=== PATIENT | female | born 1960 | race Caucasian/White ===

== ENCOUNTER → 2017-12-30 07:03 | Outpatient (CLI) | payer BC, SELFPAY ==
[2017-12-30 08:36] LABS: Add Manual Diff / Slide Review NO; Eosinophils Percent Auto 4.6 % (2-4); Hematocrit 41.4 % (36-46); Hemoglobin 13.8 g/dL (12.0-16.0); Lymphocytes Percent Auto 37.9 % (25-40); Mean Corpuscular HGB Conc 33.4 % (30-36); Mean Corpuscular Hemoglobin 31.3 PG (26-34); Mean Corpuscular Volume 93.6 fL (80-100); Monocytes Percent Auto 8.3 % (3-14); Neutrophils Absolute Auto 3400 /uL (3000-5900); Neutrophils Percent Auto 48.2 % (50-75); Platelet Count 290 X10^3/uL (150-400); Red Blood Cell Count 4.42 X10^6/uL (4.0-5.2); Red Cell Distribution Width 13.1 % (11.6-14.8)
[2017-12-30 10:07] LABS: Carbon Dioxide 26 mmol/L (22-32); Chloride 105 mmol/L (98-107); HEMOLYSIS 17 (0-50); Potassium 4.1 mmol/L (3.4-5.1); Sodium 141 mmol/L (137-145)
== END ==
PROVIDERS: PCP Family Medicine; Visit Provider Orthopaedic Surgery
DX: Z01.812 Encounter for preprocedural laboratory examination (principal); Z01.818 Encounter for other preprocedural examination
CPT/HCPCS: 36415; 80051; 85025; 93005; 93010

== ENCOUNTER 2018-02-04 11:02 | Day surgery (SDC) | payer BC, SELFPAY ==
[2018-01-28 15:05] VITALS: BMI 37.0
[2018-02-04] VITALS (11 sets, daily range): BP systolic 116–137; BP diastolic 79–92; PULSE 80–92; RESP 12–16; TEMP 36.1–36.7; O2SAT 93–99; BMI 37.0
--- NOTE | 2018-02-04 06:00 | DI.RAD.S_ITS ---
PROCEDURE: XR KNEE LT 1TO2V INDICATIONS: prosthesis placement TECHNIQUE: 2 view(s) of the knee acquired. COMPARISON: [facility], , KNEE 3V RIGHT, 02/05/2016, 10:47. FINDINGS: Bones: Patient is status post knee joint arthroplasty. Hardware components are in expected positions. Visualized bony structures are intact. Soft tissues: Overlying postoperative changes are noted. IMPRESSION: Expected positioning of recently placed left knee medial unicondylar arthroplasty. Dictated by: Toney Bermudez [facility] Interpreted: Amadeo Persaud MD on 02/04/2018 at 14:40 Approved by: Amadeo Persaud M.D. on 02/04/2018 at 16:22
[2018-02-04] MEDS: PREGABALIN 75 MG CAPSULE PO (11:37)
[2018-02-04] MEDS: ACETAMINOPHEN 325 MG TABLET 975 MG PO (11:37)
[2018-02-04] MEDS: MELOXICAM 7.5 MG TABLET 15 MG PO (11:38)
--- NOTE | 2018-02-04 11:56 | PM.PREOP ---
Pre-operative Note Interval Note Pre-op Check: Yes History & Physical Reviewed by Physician and Yes Exam Performed Changes: No
[2018-02-04] MEDS: LACTATED RINGERS 1,000 ML 42 ML IV ×2 (11:57→14:36)
[2018-02-04] MEDS: CEFAZOLIN 2 GM/100 ML FROZ.PIGGY IV (12:30)
--- NOTE | 2018-02-04 12:36 | SUR.PREOP ---
Block start time [1233] . Monitoring initiated and maintained throughout procedure. Oxygen and medications given per anesthesiologist instructions. Patient remained stable throughout procedure, no adverse reactions noted. Block end time [1236].
--- NOTE | 2018-02-04 12:41 | SUR.OPER ---
Supine on padded OR bed. Pillow under head, arms secured on padded armboards <90 degree abduction. Safety belt across torso. Non-operative leg secured with tape over blanket over lower leg. Operative leg secured in DeMayo/Sylvester positioner. Foam padded brace at thigh of operative leg.
--- NOTE | 2018-02-04 12:44 | P.OP_ITS ---
Operative Date/Time/Diagnoses Date of procedure: 02/04/18 Time of procedure: 13:53 Pre-op diagnosis: Medial compartment osteoarthritis left knee Post-op diagnosis: same Procedure & Clinicians Procedure: Left knee medial compartment arthroplasty Same procedure as scheduled: Yes Indications: The patient presents today for medial compartment l knee arthroplasty after failure of conservative treatment. The nature of the procedure including the risks and benefits, alternatives, postoperative course and expected outcome were discussed and all questions answered. Consent was obtained. Operative site confirmed and marked. Surgeon: Honorio Cleaning Headlight Adjuster: Jann Heller Anesthesia Type: General and Local Operative Notes Findings: Severe medial compartment osteoarthritis. Closure Type: primary Specimen(s): none sent Implants & Drains: [employer] ZUK be femur, 2 tibia and 10 mm polyethylene tray. Applied: implant(s) Estimated Blood Loss (mL): 25 Blood products transfused: none Tourniquet time (min): 50 Procedure in detail: The patient was taken to the operative suite and placed under general anesthesia. The patient received prophylactic antibiotics 1 g of IV tranexamic acid prior to surgery. The lateral aspect of the leg was prepped and the knee injected with 20 mL of 1% lidocaine with epinephrine. The leg was prepped and draped in usual sterile fashion. The leg was exsanguinated with an Esmarch dressing and the tourniquet raised to 250 torr. A 10 cm medial parapatellar incision and arthrotomy was then made. The anterior aspect of the fat pad and medial meniscus was resected. A small amount of anterior tibial boss was resected with a oscillating saw. The knee was then extended and the alignment guide placed. The distal femoral and proximal tibial cutting guides were then pinned into place. The distal femoral cut was made in extension. The proximal tibial cut was made in flexion. All remaining meniscus was excised. Gaps were checked with blocks. Soft tissues were then injected with a combination of 40 mL of quarter percent Marcaine with epinephrine, 20 mL of Exparel. The femur was sized and the appropriate cutting guide placed. The peg holes were drilled and chamfer cuts made. Next the tibia was sized and drilled. Trial components were then placed. The knee had good presybeterian of soft tissue tension without over correction. Range of motion was full. The trial components were removed. The knee was cleansed with Pulsavac irrigation and dried. The components were then cemented with high viscosity vacuum mixed bone cement. The knee was held in extension until the cement had adequately cured. The knee was then irrigated and inspected for any further debris. The extensor mechanism was closed at 90? of flexion with a few interrupted #1 Vicryl sutures and a running O V-LOC suture. The knee was then filled with 50 mL of solution containing 1 g of tranexamic acid and 10 mL of 0.5% Marcaine. The subcutaneous tissue was closed with 2-0 Vicryl. The skin was closed with a running 3 0 V-LOC suture and surgical adhesive. An Aquacel dressing was applied. The leg was then wrapped with an Ankur which will be kept on for the first 24 hours. The patient tolerated the procedure well and was returned to recovery room in good condition. Complications: none Condition: stable Disposition: same day surgery Plan for aftercare: Discharged to home with unicompartmental knee protocol.
[2018-02-04] MEDS: LIDOCAINE 1% W/EPI INJ 20 ML INJ (13:00)
[2018-02-04] MEDS: BUPIVACAINE 0.5% W/ EPI (PF) 20 ML, BUPIVACAINE LIPOSOME 266 MG, SODIUM CHLORIDE 0.9% 2... INJ (13:24)
[2018-02-04] MEDS: POVIDONE-IODINE 15 ML, SODIUM CHLORIDE 0.9% 250 ML TOP (13:25)
[2018-02-04] MEDS: BUPIVACAINE 0.5% (PF) 10 ML, TRANEXAMIC ACID 1,000 MG, SODIUM CHLORIDE 0.9% 20 ML INJ (13:25)
--- NOTE | 2018-02-04 13:26 | PM.PROC.1 ---
Procedures Date/Time Date of procedure: 02/04/18 Time of procedure: 12:20 General Procedure description: Ultrasound guided adductor canal nerve block for post op pain control after left knee surgery by Dr. Mcdonald. Risk and benefits of procedure discussed with patient. ASA monitoring applied to patient. O2 given via nasal cannula. 2 mg Versed given for procedural sedation. Skin site was prepped with chlorhexidine and allowed to fully dry. Sterile gloves, mask, hat and probe cover were used to maintain sterility. 2% lidocaine and 30ga needle was used to make a small skin wheal at needle insertion site. Under ultrasound guidance, a 21ga 100mm Pajunk needle was directed into the adductor canal near femoral artery and saphenous nerve at the level of mid thigh. Patient reported no parasthesias. After negative aspiration, 20 mL 0.5% ropivicaine and 10mg dexamethasone were injected around saphenous nerve. Patient tolerated procedure well.
== END 2018-02-04 16:00 | disposition home or self-care (01) ==
PROVIDERS: Family Provider Family Medicine; PCP Family Medicine; Visit Provider Orthopaedic Surgery
PROC: (CPT 27446; principal; 2018-02-04 12:45)
DX: M17.12 Unilateral primary osteoarthritis, left knee (principal); G89.18 Other acute postprocedural pain
CPT/HCPCS: 27446; 64447; 73560; C1776; C9290; J0690; J1200; J2250; J2405; J2704; J2795; J3010

== ENCOUNTER → 2018-07-30 11:14 | Outpatient (CLI) | payer BC, SELFPAY ==
--- NOTE | 2018-07-30 | DI.MG.S_ITS ---
BILATERAL DIGITAL SCREENING MAMMOGRAM 3D/2D WITH CAD: 07/30/2018 CLINICAL: Routine screening. Comparison is made to exams dated: 07/22/2017 mammogram, 06/19/2016 mammogram, and 05/15/2015 mammogram - [facility]. There are scattered fibroglandular elements in both breasts. Current study was also evaluated with a Computer Aided Detection (CAD) system. There are benign calcifications in both breasts. No significant masses, calcifications, or other findings are seen in either breast. There has been no significant interval change. IMPRESSION: There is no mammographic evidence of malignancy. A 1 year screening mammogram is recommended. This exam was interpreted at Station ID: [id number]. NOTE: For mammograms, a report in lay terms will be sent to the patient. Approximately 15% of breast malignancies will not be visualized mammographically. In the management of a palpable breast mass, a negative mammogram must not discourage biopsy of a clinically suspicious lesion. Electronically Signed By: Tejinder duarte/romeo:07/30/2018 12:08:29 letter sent: Normal Exam ACR BI-RADS Category 2: Benign Finding(s) 3342F
== END ==
PROVIDERS: Family Provider Family Medicine; PCP Family Medicine; Visit Provider Family Medicine
DX: Z12.31 Encounter for screening mammogram for malignant neoplasm of breast (principal)
CPT/HCPCS: 77063; 77067

== ENCOUNTER → 2018-08-18 07:06 | Outpatient (CLI) | payer BC, SELFPAY ==
[2018-08-18 09:10] LABS: Add Manual Diff / Slide Review NO; Basophils Absolute Auto 100 /uL (0-100); Basophils Percent Auto 1.4 % (0-2); Eosinophils Absolute Auto 400 /uL (0-450); Hematocrit 38.1 % (36-46); Hemoglobin 13.1 g/dL (12.0-16.0); Lymphocytes Absolute Auto 1800 /uL (1100-4500); Lymphocytes Percent Auto 29.6 % (25-40); Mean Corpuscular HGB Conc 34.4 % (30-36); Mean Corpuscular Hemoglobin 31.1 PG (26-34); Mean Corpuscular Volume 90.4 fL (80-100); Monocytes Absolute Auto 400 /uL (0-900); Monocytes Percent Auto 6.2 % (3-14); Neutrophils Absolute Auto 3500 /uL (1500-7000); Neutrophils Percent Auto 56.8 % (50-75); Platelet Count 292 X10^3/uL (150-400); Red Blood Cell Count 4.21 X10^6/uL (4.0-5.2); White Blood Cell Count 6.2 X10^3/uL (4.5-11.0)
[2018-08-18 09:52] LABS: Alanine Aminotransferase 26 IU/L (9-52); Albumin Globulin Ratio 1.5 (1.0-2.8); Alkaline Phosphatase 58 U/L (38-126); Aspartate Aminotransferase 21 IU/L (14-36); BUN Creatinine Ratio 18.3 (6-22); Bilirubin Total 0.4 mg/dL (0.2-1.3); Blood Urea Nitrogen 11 mg/dL (7-17); Carbon Dioxide 24 mmol/L (22-32); Chloride 106 mmol/L (98-107); Cholesterol 227 mg/dL (140-199); Estimated Glomerular Filt Rate > 60.0 mL/min (>60); Globulin 2.6 g/dL (1.7-4.1); Glucose 99 mg/dL (70-100); HDL Cholesterol 39 mg/dL (40-60); HEMOLYSIS < 15 (0-50); LDL Cholesterol Calculated 146 mg/dL (<100); Potassium 4.3 mmol/L (3.4-5.1); Sodium 140 mmol/L (137-145); Total Protein 6.6 g/dL (6.3-8.2); Triglycerides 210 mg/dL (35-150)
[2018-08-18 11:11] LABS: Free T4, Direct Thyroxine 0.93 ng/dL (0.78-2.19)
== END ==
PROVIDERS: PCP Family Medicine; Visit Provider Family Medicine
DX: Z00.00 Encounter for general adult medical examination without abnormal findings (principal); Z13.6 Encounter for screening for cardiovascular disorders
CPT/HCPCS: 36415; 80053; 80061; 84439; 84443; 85025

== ENCOUNTER → 2018-09-17 07:15 | Outpatient (CLI) | payer BC, SELFPAY ==
--- NOTE | 2018-09-17 07:16 | DI.US.S_ITS ---
PROCEDURE: US PERIPH VENOUS LOW EXTREM LT INDICATIONS: EDEMA TECHNIQUE: Real-time imaging, as well as color and pulse Doppler interrogation, were performed of the lower extremity deep veins from the inguinal ligament to the popliteal fossa. COMPARISON: [facility] [place], [place], XR FOOT 3+ VIEWS LEFT, 08/03/2018, 14:51. FINDINGS: The common femoral, femoral and popliteal veins are normally compressible, and free of intraluminal thrombus. Color and pulse Doppler demonstrate normal phasic intraluminal flow. There is normal augmentation response to distal compression maneuver. IMPRESSION: No evidence of deep venous thrombosis. Dictated by: Flip Benito M.D. on 09/17/2018 at 10:29 Approved by: Flip Benito M.D. on 09/17/2018 at 10:44
== END ==
PROVIDERS: PCP Family Medicine; Visit Provider Family Medicine
DX: R60.0 Localized edema (principal)
CPT/HCPCS: 93971

== ENCOUNTER 2019-02-22 08:44 | Day surgery (SDC) | payer BC, SELFPAY ==
[2019-02-22 09:10] VITALS: BP 134/87; PULSE 93; RESP 15; TEMP 36.3; O2SAT 97; BMI 33.8
[2019-02-22] MEDS: SODIUM CHLORIDE 0.9% 1,000 ML 200 ML IV (09:35)
--- NOTE | 2019-02-22 10:00 | PM.HP.1 ---
History of Present Illness History of Present Illness Date Patient Seen: 02/22/19 Time Patient Seen: 10:00 Chief complaint: [id number] Narrative: Patient presents for colorectal screening. Family history is significant for father with colorectal cancer at age 49. She has had 5 prior colonoscopy last 3 years ago that demonstrated an adenomatous polyp. On further history denies any recent gastrointestinal symptoms. No nausea, vomiting, abdominal pain, loss of appetite, unexplained weight loss, change in bowel habits, diarrhea, constipation, melena, hematochezia, or bright red blood per rectum. Patient History Medical History Abnormal Pap smear of cervix (Chronic) Arthritis of knee (Chronic) Colon polyps (Chronic ~2011) Heavy menstrual period (Resolved) Impaired vision (Chronic) Irregular menstrual cycle (Resolved) Ovarian cyst (Chronic ~1979) Postmenopausal (Chronic) Surgical History Anesthesia (Resolved) History of colonoscopy (Resolved) History of knee replacement Status post arthroscopy (~2000) Status post arthroscopy (~2005) Status post delivery (~1982) Status post delivery (~1985) Status post ovarian cystectomy (~1979) Family History (Updated 04/18/14 @ 00:00 by Conversion Provider) Brother Age: 54 Hypertension Brother Age: 52 Hypertension Father Hypertension Heart disease High cholesterol Mother No problems noted. Social History household members: spouse Smoking Status: Never smoker alcohol intake: current Family & Social History Family History Brother Age: 54 Hypertension Brother Age: 52 Hypertension Father Hypertension Heart disease High cholesterol Mother No problems noted. Social History: household members spouse Tobacco & Substance use: Smoking Status Never smoker alcohol intake current Meds Home Medications and Allergies Home Medications Medication Instructions Recorded Confirmed Type aspirin [Aspirin Low Dose] 81 mg PO QDAY #0 04/10/11 02/22/19 History fish brk-xelvj-2-vit C-vit E 1,000 mg PO DAILY #0 04/10/11 02/22/19 History gxythmbewipx-Cr-xxrg-minerals 2 tab PO DAILY #0 04/10/11 02/22/19 History [Multiple Vitamin, Womens] ibuprofen 400 mg PO PRN #0 02/18/12 02/22/19 History Allergies Allergy/AdvReac Type Severity Reaction Status Date / Time oxycodone [From Percocet] Allergy Mild Rash Verified 02/22/19 09:24 Sulfa (Sulfonamide Allergy Mild Rash Verified 02/22/19 09:24 Antibiotics) [SULFA (SULFONAMIDE ANTIBIOTICS)] Review of Systems Review of Systems ROS Unobtainable: All systems reviewed & are unremarkable except as noted in HPI and below Exam Vital Signs (past 8 hours): - 02/22/19 09:10 Temperature 97.4 F L Pulse Rate 93 H Respiratory Rate 15 Blood Pressure 134/87 Pulse Oximetry 97 Oxygen Delivery Method Room Air Narrative Exam Narrative: General-no acute distress, well nourished HEENT-moist mucous membranes, no scleral icterus Neck-supple, no lymphadenopathy Chest- non labored respirations, clear to auscultation bilaterally Cardiac-regular rate no peripheral edema Abdomen-soft, nontender, non distended Extremities-warm, well perfused Neurological-alert and oriented, no focal deficits Assessment & Plan Assessment and plan (1) Screening for colon cancer: Current visit: Yes Status: Acute Assessment & Plan narrative: Patient is requiring colorectal screening. Colonoscopy is recommended. Technical details were discussed. Risks, benefits, alternatives explained. Risks including but not limited to sedation, aspiration, bleeding, pain, missed lesion, incomplete examination, need for further radiographic studies, colonic perforation, need for major abdominal surgery, and all attendant risks major surgery were discussed at length. All questions were answered to their satisfaction, and they voiced understanding.
[2019-02-22] MEDS: MIDAZOLAM 5 MG/5 ML VIAL IV (10:32)
[2019-02-22] MEDS: fentaNYL 250 MCG/5 ML INJ IV (10:32)
--- NOTE | 2019-02-22 10:33 | PM.OP.ENDO ---
Operative Date/Time/Diagnoses Date of procedure: 02/22/19 Time of procedure: 10:33 Pre-op diagnosis: Screening colonoscopy Post-op diagnosis: same Procedure & Clinicians Study performed: Colonoscopy Same procedure as scheduled: Yes Indications: 58-year-old female with a family history of colorectal cancer most recent colonoscopy 3 years ago notable for adenomatous polyp presents for some routine screening. Surgeon: Anish Heath Procedure Notes SCOAP/Timeout: Performed Procedure in detail: Patient placed in left lateral decubitus position. Time out was performed. Procedural sedation was administered with Versed and Fentanyl. A rectal exam demonstrated no external hemorrhoids no internal masses. Colonoscopy scope was placed into the rectum and advanced through the colon to the cecum. The ileocecal valve was identified. The scope was then slowly withdrawn examining colon thoroughly in all directions. The colonoscopy was normal, there were no masses polyps colitis or diverticulosis. The scope was retroflexed within the rectum demonstrated grade 1 internal hemorrhoids. The rectum was desufflated and the scope removed. Patient tolerated procedure well. Scope withdrawal time: 6 Sedation minutes: 29 Findings: internal hemorrhoids Specimen(s): none sent Complications: none Impression: Normal Post-procedure Recommendations: Colonscopy in 5 years Disposition: PACU
[2019-02-22 10:36] VITALS: BP 126/86; PULSE 90; RESP 14; TEMP 36.2; O2SAT 94
[2019-02-22] MEDS: ONDANSETRON 8 MG in SODIUM CHLORIDE 0.9% 50 ML 216 ML IV (10:37)
[2019-02-22 10:42] VITALS: BP 134/80; PULSE 92; RESP 21; O2SAT 96
[2019-02-22 10:46] VITALS: BP 133/90; PULSE 98; O2SAT 95
[2019-02-22 10:52] VITALS: BP 114/81; PULSE 89; RESP 95; O2SAT 16
[2019-02-22 11:21] VITALS: BP 131/88; PULSE 95; RESP 16; TEMP 35.8; O2SAT 96
== END 2019-02-22 11:27 | disposition home or self-care (01) ==
PROVIDERS: PCP Family Medicine; Visit Provider Surgery
PROC: 0DJD8ZZ Inspection of Lower Intestinal Tract, Via Natural or Artificial Opening Endoscopic (ICD-10-PCS; CPT 45378; principal; 2019-02-22 10:00)
DX: Z86.010 Personal history of colon polyps (principal); K64.0 First degree hemorrhoids
CPT/HCPCS: 45378; 99152; 99153; J2250; J2405; J3010

== ENCOUNTER → 2019-05-31 14:43 | Outpatient (CLI) | payer BC, SELFPAY | PROVIDERS: PCP Family Medicine; Visit Provider Family Medicine | DX: R31.9 Hematuria, unspecified (principal) | CPT/HCPCS: 87086 ==

== ENCOUNTER → 2020-07-07 07:56 | Outpatient (CLI) | payer BC, SELFPAY ==
--- NOTE | 2020-07-07 | DI.MG.S_ITS ---
BILATERAL DIGITAL SCREENING MAMMOGRAM 3D/2D WITH CAD: 07/07/2020 CLINICAL: Routine screening. Comparison is made to exams dated: 07/30/2018 mammogram, 07/22/2017 mammogram, and 06/19/2016 mammogram - [facility]. There are scattered fibroglandular elements in both breasts. Current study was also evaluated with a Computer Aided Detection (CAD) system. There are benign calcifications in both breasts. No significant masses, calcifications, or other findings are seen in either breast. There has been no significant interval change. IMPRESSION: BENIGN There is no mammographic evidence of malignancy. A 1 year screening mammogram is recommended. This exam was interpreted at Station ID: [id number]. NOTE: For mammograms, a report in lay terms will be sent to the patient. Approximately 15% of breast malignancies will not be visualized mammographically. In the management of a palpable breast mass, a negative mammogram must not discourage biopsy of a clinically suspicious lesion. Electronically Signed By: Johnny cain/romeo:07/07/2020 08:49:14 letter sent: Normal Exam ACR BI-RADS Category 2: Benign Finding(s) 3342F
== END ==
PROVIDERS: PCP Family Medicine; Referring Provider Family Medicine; Visit Provider Family Medicine
DX: Z12.31 Encounter for screening mammogram for malignant neoplasm of breast (principal)
CPT/HCPCS: 77063; 77067

== ENCOUNTER → 2020-09-19 07:00 | Outpatient (CLI) | payer BC, SELFPAY ==
[2020-09-19 08:14] LABS: Add Manual Diff / Slide Review NO; Basophils Absolute Auto 100 /uL (0-100); Basophils Percent Auto 1.2 % (0-2); Eosinophils Absolute Auto 500 /uL (0-450); Eosinophils Percent Auto 7.2 % (2-4); Hematocrit 39.1 % (36-46); Hemoglobin 13.3 g/dL (12.0-16.0); Lymphocytes Absolute Auto 2200 /uL (1100-4500); Lymphocytes Percent Auto 34.6 % (25-40); Mean Corpuscular Volume 91.2 fL (80-100); Monocytes Absolute Auto 500 /uL (0-900); Neutrophils Absolute Auto 3200 /uL (1500-7000); Platelet Count 269 X10^3/uL (150-400); Red Blood Cell Count 4.29 X10^6/uL (4.0-5.2); Red Cell Distribution Width 12.9 % (11.6-14.8); White Blood Cell Count 6.4 X10^3/uL (4.5-11.0)
[2020-09-19 08:27] LABS: Alanine Aminotransferase 20 IU/L (<35); Albumin 3.8 g/dL (3.5-5.0); Albumin Globulin Ratio 1.4 (1.0-2.8); Alkaline Phosphatase 59 U/L (38-126); Aspartate Aminotransferase 24 IU/L (14-36); BUN Creatinine Ratio 20.6 (6-22); Bilirubin Total 0.3 mg/dL (0.2-1.3); Blood Urea Nitrogen 13 mg/dL (7-17); Calcium 8.8 mg/dL (8.4-10.2); Carbon Dioxide 26 mmol/L (22-32); Chloride 106 mmol/L (98-107); Cholesterol 259 mg/dL (140-199); Estimated Glomerular Filt Rate > 60.0 mL/min (>60); Globulin 2.7 g/dL (1.7-4.1); Glucose 110 mg/dL (70-100); HDL Cholesterol 46 mg/dL (40-60); HEMOLYSIS < 15 (0-50); LDL Cholesterol Calculated 180 mg/dL (<100); Potassium 4.4 mmol/L (3.4-5.1); Sodium 137 mmol/L (137-145); Total Protein 6.5 g/dL (6.3-8.2); Triglycerides 166 mg/dL (35-150)
[2020-09-19 09:11] LABS: Thyroid Stimulating Hormone 4.11 uIU/mL (0.47-4.68)
== END ==
PROVIDERS: PCP Family Medicine; Referring Provider Family Medicine; Visit Provider Family Medicine
DX: E03.9 Hypothyroidism, unspecified (principal); E78.2 Mixed hyperlipidemia
CPT/HCPCS: 36415; 80053; 80061; 84443; 85025

== ENCOUNTER → 2020-10-23 10:16 | Outpatient (CLI) | payer BC, SELFPAY ==
[2020-10-23 11:09] LABS: Appearance Urine UA CLEAR; Bilirubin Urine UA NEGATIVE (NEGATIVE); Color Urine UA YELLOW; Glucose Urine UA NEGATIVE (Negative); Ketones Urine UA NEGATIVE (NEGATIVE); Leukocyte Esterase Urine UA 1+ (NEGATIVE); Nitrite Urine UA NEGATIVE (Negative); Occult Blood Urine UA 2+ (Negative); Protein Urine UA NEGATIVE (Negative); Specific Gravity Urine UA <=1.005 (1.000-1.035); Urobilinogen Urine UA 0.2 E.U./dL (0.2)
[2020-10-23 11:28] LABS: Bacteria Urine Few (2-10); Culture Indicated Urine Specimen Cultured; RBC Urine 1-5/HPF (0-5/HPF); Squamous Epithelial Cell Urine 0-1 /HPF (0-5/HPF); WBC Urine 10-30/HPF (0-5/HPF)
== END ==
PROVIDERS: PCP Family Medicine; Referring Provider Family Medicine; Visit Provider Family Medicine
DX: R30.0 Dysuria (principal)
CPT/HCPCS: 81001; 87077; 87086; 87186

== ENCOUNTER → 2021-04-12 10:49 | Outpatient (CLI) | payer BC, SELFPAY ==
[2021-04-12 12:15] LABS: COVID19 -Nasal RAPID Negative (Negative)
== END ==
PROVIDERS: PCP Family Medicine; Referring Provider Physician Assistant; Visit Provider Physician Assistant
DX: Z20.822 Contact with and (suspected) exposure to COVID-19 (principal)
CPT/HCPCS: 87635

== ENCOUNTER → 2021-09-28 07:00 | Outpatient (CLI) | payer BC, SELFPAY ==
--- NOTE | 2021-09-28 07:02 | DI.RAD.S_ITS ---
PROCEDURE: XR LUMBAR SPINE 2-3V INDICATIONS: chronic low back pain TECHNIQUE: 3 views of the lumbar spine were acquired. COMPARISON: None. FINDINGS: Bones: 5 dgr-ezb-nebitjr vertebrae are present. There is mild, approximately 4 millimeters of L4-L5 anterolisthesis secondary to facet hypertrophy.. No vertebral body compression fractures. No suspicious bony lesions. Mild degenerative disc changes noted throughout the lumbar spine. Moderate L4-L5 and L5-S1 facet arthropathy. Mild L2-L3 and L3-L4 facet arthropathy. Soft tissues: Overlying bowel gas pattern is normal. No suspicious soft tissue calcifications. IMPRESSION: 1. Multilevel degenerative disc disease. 2. Multilevel facet arthropathy. 3. No fracture. No acute osseous lesion. If symptoms and/or clinical suspicion for pathology persists, evaluation with MRI should be considered for further assessment. 4. Grade 1 L4-L5 degenerative spondylolisthesis. Dictated by: Abena Springer MD, PhD on 09/28/2021 at 10:31 Approved by: Abena Springer MD, PhD on 09/28/2021 at 10:33
[2021-09-28 08:26] LABS: Add Manual Diff / Slide Review NO; Basophils Absolute Auto 100 /uL (0-100); Basophils Percent Auto 0.9 % (0-2); Eosinophils Absolute Auto 500 /uL (0-450); Eosinophils Percent Auto 5.8 % (2-4); Hematocrit 38.8 % (36-46); Hemoglobin 13.4 g/dL (12.0-16.0); Lymphocytes Absolute Auto 3100 /uL (1100-4500); Lymphocytes Percent Auto 38.4 % (25-40); Mean Corpuscular HGB Conc 34.6 % (30-36); Mean Corpuscular Hemoglobin 31.2 PG (26-34); Mean Corpuscular Volume 90.3 fL (80-100); Monocytes Absolute Auto 600 /uL (0-900); Monocytes Percent Auto 7.9 % (3-14); Neutrophils Absolute Auto 3800 /uL (1500-7000); Platelet Count 288 X10^3/uL (150-400); Red Cell Distribution Width 12.8 % (11.6-14.8); White Blood Cell Count 8.1 X10^3/uL (4.5-11.0)
[2021-09-28 08:33] LABS: Hemoglobin A1C% w Est Avg Glu 5.6 % (4.0-6.0)
[2021-09-28 08:41] LABS: Alanine Aminotransferase 30 IU/L (<35); Albumin 4.2 g/dL (3.5-5.0); Albumin Globulin Ratio 1.4 (1.0-2.8); Alkaline Phosphatase 66 U/L (38-126); Aspartate Aminotransferase 30 IU/L (14-36); BUN Creatinine Ratio 25.4 (6-22); Bilirubin Total 0.4 mg/dL (0.2-1.3); Blood Urea Nitrogen 16 mg/dL (7-17); Carbon Dioxide 26 mmol/L (22-32); Chloride 107 mmol/L (98-107); Cholesterol 206 mg/dL (140-199); Estimated Glomerular Filt Rate > 60 mL/min (>60); Globulin 2.9 g/dL (1.7-4.1); Glucose 106 mg/dL (70-100); HDL Cholesterol 41 mg/dL (40-60); HEMOLYSIS < 15 (0-50); LDL Cholesterol Calculated 100 mg/dL (<100); Potassium 4.3 mmol/L (3.4-5.1); Sodium 138 mmol/L (137-145); Total Protein 7.1 g/dL (6.3-8.2); Triglycerides 323 mg/dL (35-150)
== END ==
PROVIDERS: PCP Family Medicine; Referring Provider Family Medicine; Visit Provider Family Medicine
DX: M51.36 Other intervertebral disc degeneration, lumbar region (principal); M47.816 Spondylosis without myelopathy or radiculopathy, lumbar region; M47.817 Spondylosis without myelopathy or radiculopathy, lumbosacral region; M43.16 Spondylolisthesis, lumbar region; M54.50 Low back pain, unspecified; E03.9 Hypothyroidism, unspecified; E78.2 Mixed hyperlipidemia; R73.01 Impaired fasting glucose; G89.29 Other chronic pain
CPT/HCPCS: 36415; 72100; 80053; 80061; 83036; 85025

== ENCOUNTER → 2021-10-16 07:05 | Outpatient (CLI) | payer BC, SELFPAY ==
--- NOTE | 2021-10-16 07:06 | DI.MRI.S_ITS ---
PROCEDURE: MR LUMBAR SPINE WO CON INDICATIONS: chronic low back pain with radiculopathy TECHNIQUE: Noncontrast sagittal T1 spin echo and T2 fast echo, sagittal STIR, and T2 fast spin echo through the lumbar spine. In cases with scoliosis, additional coronal T2 fast spin echo may be performed. COMPARISON: None. FINDINGS: Image quality: Excellent. Alignment and Curvature: There is normal bony alignment. Bone Marrow: Diffuse heterogeneously low T1 marrow signal intensity with scattered T1/T2 hyperintense hemangiomas. No suspicious focal low T1 marrow signal lesion is identified. No evidence of bone marrow edema. Spinal Cord: Conus medullaris terminates at the normal level. Visualized cord demonstrates normal signal and size. Regional Soft Tissues: No paravertebral masses. T12-L1: Normal appearance. L1-L2: Normal appearance. L2-L3: Normal appearance. L3-L4: Disc bulge flattens the ventral thecal sac without mass effect upon the traversing L4 nerve roots. Foraminal components of the disc bulge and facet hypertrophy combine to produce mild bilateral neural foraminal stenosis. L4-L5: Disc bulge flattens the ventral thecal sac without mass effect upon the traversing L5 nerve roots. Foraminal components of the disc bulge and facet hypertrophy combine to produce mild bilateral neural foraminal stenosis. L5-S1: No spinal canal or neural foraminal stenosis. Facet hypertrophy. IMPRESSION: Multilevel multifactorial degenerative changes with no evidence of focal nerve root impingement. Dictated by: Rich Bethea M.D. on 10/16/2021 at 10:43 Approved by: Rich Bethea M.D. on 10/16/2021 at 11:03
== END ==
PROVIDERS: PCP Family Medicine; Referring Provider Family Medicine; Visit Provider Family Medicine
DX: M47.26 Other spondylosis with radiculopathy, lumbar region (principal); M47.27 Other spondylosis with radiculopathy, lumbosacral region; G89.29 Other chronic pain; E78.2 Mixed hyperlipidemia
CPT/HCPCS: 72148

== ENCOUNTER → 2021-10-16 13:55 | Outpatient (CLI) | payer BC, SELFPAY ==
--- NOTE | 2021-10-16 13:59 | DI.MG.S_ITS ---
BILATERAL DIGITAL SCREENING MAMMOGRAM 3D/2D WITH CAD: 10/16/2021 CLINICAL: Routine screening. Comparison is made to exams dated: 07/07/2020 mammogram, 07/30/2018 mammogram, and 07/22/2017 mammogram - [facility]. There are scattered fibroglandular elements in both breasts. Current study was also evaluated with a Computer Aided Detection (CAD) system. There are benign calcifications in both breasts. No significant masses, calcifications, or other findings are seen in either breast. There has been no significant interval change. IMPRESSION: BENIGN There is no mammographic evidence of malignancy. A 1 year screening mammogram is recommended. This exam was interpreted at Station ID: [id number]. NOTE: For mammograms, a report in lay terms will be sent to the patient. Approximately 15% of breast malignancies will not be visualized mammographically. In the management of a palpable breast mass, a negative mammogram must not discourage biopsy of a clinically suspicious lesion. Electronically Signed By: Johnny cain/romeo:10/16/2021 15:01:06 letter sent: Normal Exam ACR BI-RADS Category 2: Benign Finding(s) 3342F
== END ==
PROVIDERS: PCP Family Medicine; Referring Provider Family Medicine; Visit Provider Family Medicine
DX: Z12.31 Encounter for screening mammogram for malignant neoplasm of breast (principal)
CPT/HCPCS: 77063; 77067

== ENCOUNTER 2022-03-18 08:15 | Outpatient (RCR) | payer BC, SELFPAY ==
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
--- NOTE | 2022-02-05 11:55 | PT.OPPOC ---
Physical, Occupational & Speech Therapy At [facility] Current Diagnoses Other chronic pain (02/05/22) Bilateral primary osteoarthritis of knee (02/05/22) Radiculopathy, lumbar region (02/05/22) Visit Care Team Role Provider Type Taz Stevens MD Attending Provider Physician Family Provider Primary Care Provider Referring Provider Specialty: Family Practice Address: [address] [place] [address], [facility] Email: [email or web address] Plan Of Care PT-OP-T Assessment and Plan Start: 12/06/21 21:02 Freq: Status: Active Protocol: Document 02/05/22 07:26 AMB (Rec: 02/05/22 08:18 AMB [id number]) Physical Therapy Assessment Goals Two Impairment Strength Short Term Goal (STG) Mary Grace will be independent with a HEP for core/hip strengthening STG Duration MET Correction Goal (LTG) Mary Grace will perform a full squat to lift 10 pounds with good body mechanics without an increase in pain. LTG Duration 8 weeks One Impairment Positional tolerance Short Term Goal (STG) Mary Grace will drive for 15 minutes without needing to stop and get out of the car for pain relief. STG Duration MET Filenet Developer Goal (LTG) Mary Grace will stand for 3 hours at work without an increase in pain at low back, L LE. LTG Duration 8 weeks Assessment Summary Assessment Mary Grace is improving, her nerve pain is not as severe, she can now sit in the car for her trip home without significant pain. She continues to have pain especially at the end of her day after she has been at work . She will benefit from continued PT to reduce her pain as she continues to have stiffness that limits her ability to walk and stand for any length of time. Physical Therapy Plan Frequency and Duration Frequency of Treatment 2x/Week Duration of treatment (weeks) 8 Plan of Care Start Date 02/05/22 Plan of Care End Date 04/02/22 Therapeutic Interventions Therapeutic Interventions Gait Training,Home Exercise Program,Manual Therapy, Neuromuscular Re-education, Self-Care/Home Management, Therapeutic Activities, Therapeutic Exercises Modalities Cold Pack/Ice Massage,Electric Stimulation,Hot Packs Next Visit Focus/Plan Next Note Type Treatment Note Next Visit Plan Progress piriformis stretching , IT band stretching Plan of Care Dates Plan of Care Start Date 02/05/22 Plan of Care End Date 04/02/22 Electronically Signed by: Dia Garcia, ISAAC 02/05/22 0261 If you are in agreement with this Plan of Care, please return a signed and dated copy. I have reviewed this Plan of Care and certify that the skilled therapy services above are required to meet the patient?s needs. Physician Signature Date Printed Name and Credentials Clinical Instructor Signature Printed Name and Credentials
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
== END 2022-04-02 12:12 | disposition home or self-care (01) ==
LOC: PHYS 08:15
PROVIDERS: Family Provider Family Medicine; PCP Family Medicine; Referring Provider Family Medicine; Visit Provider Family Medicine
DX: M17.0 Bilateral primary osteoarthritis of knee (principal); M54.16 Radiculopathy, lumbar region; G89.29 Other chronic pain
CPT/HCPCS: 97014; 97035; 97110; 97140; 97161; 97535; G0283

== ENCOUNTER → 2022-10-21 08:30 | Outpatient (CLI) | payer BC, SELFPAY ==
--- NOTE | 2022-10-21 | DI.MG.S_ITS ---
BILATERAL DIGITAL SCREENING MAMMOGRAM 3D/2D WITH CAD: 10/21/2022 CLINICAL: Routine screening. Comparison is made to exams dated: 10/16/2021 mammogram, 07/30/2018 mammogram, and 07/07/2020 mammogram - [facility]. There are scattered areas of fibroglandular density in both breasts (category b / 25%-50% glandular tissue). Current study was also evaluated with a Computer Aided Detection (CAD) system. There are benign calcifications in both breasts. No significant masses, calcifications, or other findings are seen in either breast. There has been no significant interval change. IMPRESSION: BENIGN There is no mammographic evidence of malignancy. A 1 year screening mammogram is recommended. Based on the Tyrer Cuzick model (a risk assessment model) the patient's lifetime risk is 6.6% and her 10 year risk is 2.7%. According to the ACR, ACS, and NCCN guidelines, an annual breast MRI exam along with mammogram is recommended if the patient's lifetime risk is 20% or greater. This exam was interpreted at Station ID: [id number]. NOTE: For mammograms, a report in lay terms will be sent to the patient. Approximately 15% of breast malignancies will not be visualized mammographically. In the management of a palpable breast mass, a negative mammogram must not discourage biopsy of a clinically suspicious lesion. Electronically Signed By: Ronaldo harry/romeo:10/21/2022 09:09:31 letter sent: Normal Exam ACR BI-RADS Category 2: Benign Finding(s) 3342F
== END ==
PROVIDERS: Family Provider Family Medicine; PCP Family Medicine; Referring Provider Family Medicine; Visit Provider Family Medicine
DX: Z12.31 Encounter for screening mammogram for malignant neoplasm of breast (principal)
CPT/HCPCS: 77063; 77067

== ENCOUNTER → 2022-12-18 08:06 | Outpatient (CLI) | payer BC, SELFPAY | PROVIDERS: Family Provider Family Medicine; PCP Family Medicine; Visit Provider Nurse Practitioner Family | DX: N39.0 Urinary tract infection, site not specified (principal) | CPT/HCPCS: 87086 ==

== ENCOUNTER → 2023-01-28 07:01 | Outpatient (CLI) | payer BC, SELFPAY ==
[2023-01-28 09:44] LABS: Add Manual Diff / Slide Review NO; Basophils Absolute Auto 100 /uL (0-100); Basophils Percent Auto 0.7 % (0-2); Eosinophils Absolute Auto 300 /uL (0-450); Eosinophils Percent Auto 4.7 % (2-4); Hemoglobin 13.8 g/dL (12.0-16.0); Lymphocytes Absolute Auto 2100 /uL (1100-4500); Lymphocytes Percent Auto 29.4 % (25-40); Mean Corpuscular HGB Conc 33.7 % (30-36); Mean Corpuscular Hemoglobin 31.1 PG (26-34); Mean Corpuscular Volume 92.2 fL (80-100); Monocytes Absolute Auto 500 /uL (0-900); Monocytes Percent Auto 6.4 % (3-14); Neutrophils Absolute Auto 4200 /uL (1500-7000); Neutrophils Percent Auto 58.8 % (50-75); Platelet Count 285 X10^3/uL (150-400); Red Blood Cell Count 4.45 X10^6/uL (4.0-5.2); Red Cell Distribution Width 13.2 % (11.6-14.8); White Blood Cell Count 7.2 X10^3/uL (4.5-11.0)
[2023-01-28 10:32] LABS: Alanine Aminotransferase 30 IU/L (<35); Albumin 3.9 g/dL (3.5-5.0); Albumin Globulin Ratio 1.4 (1.0-2.8); Alkaline Phosphatase 52 U/L (38-126); Aspartate Aminotransferase 30 IU/L (14-36); BUN Creatinine Ratio 18.3 (6-22); Bilirubin Total 0.7 mg/dL (0.2-1.3); Blood Urea Nitrogen 11 mg/dL (7-17); Calcium 9.5 mg/dL (8.4-10.2); Carbon Dioxide 23 mmol/L (22-32); Chloride 107 mmol/L (98-107); Cholesterol 177 mg/dL (140-199); Estimated Glomerular Filt Rate > 60 mL/min (>60); Globulin 2.7 g/dL (1.7-4.1); Glucose 104 mg/dL (80-110); HDL Cholesterol 43 mg/dL (40-60); HEMOLYSIS < 15 (0-50); LDL Cholesterol Calculated 95 mg/dL (<100); Sodium 138 mmol/L (137-145); Total Protein 6.6 g/dL (6.3-8.2); Triglycerides 194 mg/dL (35-150)
[2023-01-28 10:33] LABS: Potassium 4.4 mmol/L (3.4-5.1)
[2023-01-28 11:06] LABS: TSH w/ Reflex to FT4 3.82 uIU/mL (0.47-4.68)
== END ==
PROVIDERS: Family Provider Family Medicine; PCP Family Medicine; Referring Provider Family Medicine; Visit Provider Family Medicine
DX: R73.01 Impaired fasting glucose (principal); E03.9 Hypothyroidism, unspecified; E78.2 Mixed hyperlipidemia
CPT/HCPCS: 36415; 80053; 80061; 84443; 85025

== ENCOUNTER → 2023-08-04 10:12 | Outpatient (CLI) | payer BC, SELFPAY ==
[2023-08-04 10:37] LABS: Appearance Urine UA CLEAR; Bilirubin Urine UA NEGATIVE (NEGATIVE); Color Urine UA YELLOW; Glucose Urine UA NEGATIVE (Negative); Ketones Urine UA NEGATIVE (NEGATIVE); Leukocyte Esterase Urine UA 2+ (NEGATIVE); Nitrite Urine UA NEGATIVE (Negative); Occult Blood Urine UA 2+ (Negative); Protein Urine UA NEGATIVE (Negative); Urobilinogen Urine UA 0.2 E.U./dL (0.2)
[2023-08-04 10:49] LABS: Bacteria Urine Occasional (0-1); Culture Indicated Urine Specimen Cultured; RBC Urine 1-5/HPF (0-5/HPF); Squamous Epithelial Cell Urine 0-1 /HPF (0-5/HPF); Urine Volume 10mL (spun); WBC Urine 10-30/HPF (0-5/HPF)
== END ==
PROVIDERS: Family Provider Family Medicine; PCP Family Medicine; Visit Provider Nurse Practitioner Family
DX: R30.0 Dysuria (principal)
CPT/HCPCS: 81001; 87077; 87086; 87186

== ENCOUNTER → 2023-10-27 07:36 | Outpatient (CLI) | payer OTHER, SELFPAY ==
--- NOTE | 2023-10-27 07:39 | DI.MG.S_ITS ---
BILATERAL DIGITAL SCREENING MAMMOGRAM 3D/2D WITH CAD: 10/27/2023 CLINICAL: Routine screening. Comparison is made to exams dated: 10/21/2022 mammogram, 10/16/2021 mammogram, and 07/07/[address] mammogram - [facility]. There are scattered areas of fibroglandular density in both breasts (category b / 25%-50% glandular tissue). Current study was also evaluated with a Computer Aided Detection (CAD) system. There are benign calcifications in both breasts. No significant masses, calcifications, or other findings are seen in either breast. There has been no significant interval change. IMPRESSION: BENIGN There is no mammographic evidence of malignancy. A 1 year screening mammogram is recommended. Based on the Tyrer Cuzick model (a risk assessment model) the patient's lifetime risk is 6.5% and her 10 year risk is 2.7%. According to the ACR, ACS, and NCCN guidelines, an annual breast MRI exam along with mammogram is recommended if the patient's lifetime risk is 20% or greater. This exam was interpreted at Station ID: [id number]. NOTE: For mammograms, a report in lay terms will be sent to the patient. Approximately 15% of breast malignancies will not be visualized mammographically. In the management of a palpable breast mass, a negative mammogram must not discourage biopsy of a clinically suspicious lesion. Electronically Signed By: oRse Gibson M.D., Ph.D. stella/romeo:10/27/2023 09:23:29 letter sent: Normal Exam ACR BI-RADS Category 2: Benign Finding(s) 3342F
== END ==
PROVIDERS: Family Provider Family Medicine; PCP Family Medicine; Referring Provider Family Medicine; Visit Provider Family Medicine
DX: Z12.31 Encounter for screening mammogram for malignant neoplasm of breast (principal); R92.323 Mammographic fibroglandular density, bilateral breasts
CPT/HCPCS: 77063; 77067

== ENCOUNTER → 2023-12-06 07:42 | Outpatient (CLI) | payer OTHER, SELFPAY | PROVIDERS: Family Provider Family Medicine; PCP Family Medicine; Referring Provider Physician Assistant Surgical; Visit Provider Physician Assistant Surgical | DX: R30.0 Dysuria (principal) | CPT/HCPCS: 87077; 87086; 87186 ==

== ENCOUNTER → 2023-12-12 07:13 | Outpatient (CLI) | payer OTHER, SELFPAY ==
--- NOTE | 2023-12-12 07:14 | DI.US.S_ITS ---
PROCEDURE: US RENAL COMPLETE INDICATIONS: CHRONIC CYSTITIS WO HEMATURIA TECHNIQUE: Real-time scanning was performed of the kidneys and bladder, with image documentation. COMPARISON: None. FINDINGS: Kidneys: Kidneys are normal in size. Right kidney measures 11.8 cm long; left kidney measures 1.5 cm long. Right renal cortical thickness is 11.0 cm; left renal cortical thickness is 1.5 cm. Renal cortical echotexture is normal. No hydronephrosis or nephrolithiasis. No suspicious solid mass lesions. Bladder: Pre-void bladder volume is 364 mL. Post-void residual is 10 mL. Pre-void images demonstrate no intraluminal masses or stones. On pre-void images, bilateral ureteral jets are noted with color Doppler interrogation. (Of note, ureteral jets may not be detectable in up to 25% of cases due to insufficient differences in specific gravity between ureteral and bladder urine). No abnormal trabeculation of the bladder. Miscellaneous: No free pelvic fluid. IMPRESSION: No sonographic evidence of hydronephrosis or obstructive urolithiasis. Dictated by: Garett Espinoza M.D. on 12/12/2023 at 14:00 Approved by: Garett Espinoza M.D. on 12/12/2023 at 14:40
== END ==
LOC: US 07:13
PROVIDERS: Family Provider Family Medicine; PCP Family Medicine; Referring Provider Nurse Practitioner; Visit Provider Nurse Practitioner
DX: N30.20 Other chronic cystitis without hematuria (principal)
CPT/HCPCS: 76770

== ENCOUNTER 2024-07-04 20:01 | Emergency (ER) | payer OTHER, SELFPAY ==
[2024-07-04] VITALS (8 sets, daily range): BP systolic 111–150; BP diastolic 64–92; PULSE 52–136; RESP 13–27; TEMP 36.7; O2SAT 95–100; BMI 28.3
--- NOTE | 2024-07-04 20:12 | DI.RAD.S_ITS ---
PROCEDURE: XR CHEST 1V INDICATIONS: chest pain TECHNIQUE: One view of the chest was acquired. COMPARISON: None. FINDINGS: Surgical changes and devices: None. Lungs and pleura: Lungs are clear. No pleural effusions or pneumothorax. Mediastinum: Mediastinal contours appear normal. Heart size is normal. Bones and chest wall: No suspicious bony lesions. Mild dextroscoliotic curvature of the thoracolumbar spine. Overlying soft tissues appear unremarkable. IMPRESSION: No acute cardiopulmonary abnormality is seen. Dictated by: Ramy Seay M.D. on 07/04/2024 at 20:32 Approved by: Ramy Seay M.D. on 07/04/2024 at 20:33
--- NOTE | 2024-07-04 20:13 | EKG_ITS ---
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
--- NOTE | 2024-07-04 20:13 | EKG_ITS ---
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
--- NOTE | 2024-07-04 20:14 | EKG_ITS ---
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
--- NOTE | 2024-07-04 20:14 | EKG_ITS ---
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
[2024-07-04] MEDS: ASPIRIN 81 MG CHEW TAB 324 MG PO (20:16)
--- NOTE | 2024-07-04 20:20 | ED.CHESTPAIN ---
HPI - Chest Pain General Chief Complaint: Chest Pain Stated Complaint: chest discomfort, low heart rate Time Seen by Provider: 07/04/24 20:20 Source: patient Mode of arrival: Ambulatory History of Present Illness HPI narrative: Patient is a 63-year-old female with a history of hyperlipidemia hypothyroidism comes into the ED from home for evaluation lightheaded dizziness chest discomfort ongoing persistent for the past day, states that she also check that her Apple watch was stating that she was bradycardic in the 40s. Patient states symptoms come and go nothing making it better or worse. Lasting only for several seconds to minutes. Not on any blood thinners no recent trauma or falls not complaining of any headache visual disturbances fever chills nausea vomiting abdominal pain or any other GI/ symptoms time. Related Data Home Medications Medication Instructions Recorded Confirmed [id number]-Np-ptgj-minerals 2 tab PO DAILY ##0 04/10/11 04/20/24 (Multiple Vitamin, Womens tablet) ibuprofen 200 mg tablet 400 mg PO PRN ##0 02/18/12 04/20/24 B12 Folate PO 03/13/23 04/20/24 D3 + K2 PO 03/13/23 04/20/24 DIM Detox PO 03/13/23 04/20/24 Progesterone PO 03/13/23 04/20/24 cardiotriplex PO 03/13/23 04/20/24 progesterone micronized 200 mg 200 mg PO ONCE PM 02/03/24 04/20/24 capsule Previous Rx's Medication Instructions Recorded phenazopyridine 200 mg tablet 200 mg PO TID 6 doses #6 tabs 08/04/23 (Pyridium) atorvastatin 20 mg tablet 20 mg PO ONCE PM #90 tabs 05/14/24 nitrofurantoin 1 cap PO DAILY #30 caps 06/09/24 monohydrate/macrocrystals 100 mg capsule estradiol 10 mcg vaginal tablet 10 mcg vaginal 3XW #12 tabs 06/10/24 (Vagifem) Allergies Allergy/AdvReac Type Severity Reaction Status Date / Time fentanyl Allergy Severe severe Verified 07/04/24 20:04 respiratory depression midazolam [From Versed] AdvReac Severe Vomiting Verified 07/04/24 20:04 ciprofloxacin AdvReac Intermediate NAUSEA, Verified 07/04/24 20:04 BAD NIGHT TIME MIGRAINES neomycin AdvReac Intermediate Pain, Verified 07/04/24 20:04 [From Westcort Redness ([id number])] oxycodone [From Percocet] AdvReac Mild Rash Verified 07/04/24 20:04 Sulfa (Sulfonamide AdvReac Mild Rash Verified 07/04/24 20:04 Antibiotics) [SULFA (SULFONAMIDE ANTIBIOTICS)] Review of Systems Review of Systems Narrative: General: Denies fever, chills, weight loss HEENT: Denies headache, eye drainage, eye irritation, head trauma, sore throat, voice change Cardiovascular: Positive palpitations, denies chest pain shortness of breath, tachycardia Respiratory: Denies any shortness of breath, cough, wheeze, stridor GI/: Denies any abdominal pain, nausea, vomiting, diarrhea, bright red blood per rectum, melanotic stools, urinary frequency, urinary retention, dysuria, hematuria MSK: Denies any joint pain, muscle pains, swelling Skin: Denies any rashes, lesions, discoloration Neuro: Denies any headache, lightheadedness, dizziness, fainting, weakness Psych: Denies SI/HI Patient History Medical History (Updated 07/04/24 @ 21:00 by Benoit Freed DO) Vertigo Edema of left lower extremity Irregular menstrual cycle Heavy menstrual period Arthritis of knee Ovarian cyst (~1979) Abnormal Pap smear of cervix Colon polyps (~2011) Impaired vision Postmenopausal Surgical History Anesthesia History of colonoscopy History of knee replacement Status post arthroscopy (~2005) Status post arthroscopy (~2000) Status post delivery (~1985) Status post delivery (~1982) Status post ovarian cystectomy (~1979) Family History Brother Age: 60 Hypertension Brother Age: 58 Hypertension Father Hypertension Heart disease High cholesterol Mother No problems noted. Social History marital status: household members: spouse Smoking Status: Never smoker alcohol intake: current (1-3 A WEEK ) substance use type: does not use Smoking Status: Never smoker alcohol intake frequency: a few times a week Alcohol type: wine Exam Narrative Exam Narrative: General: Cooperative, comfortable, well-developed, not in acute distress HEENT: Normocephalic, atraumatic, PERRLA, normal sclera, eyelids normal, Neck: Active full range of motion, atraumatic Chest: Normal to inspection, negative crepitus, no overlying erythema ecchymosis Respiratory: Normal respiratory effort, not in acute respiratory distress, clear to auscultation bilaterally negative cough, wheeze, tachypnea, rhonchi, rales Cardiology: Intermittently tachycardic, negative gallop, murmur, rubs GI/: Normal to inspection, soft, nonrigid, no tenderness to palpation, exam deferred MSK: Full range of active range of motion of all 4 extremities, atraumatic Skin: No rashes lesions noted Neuro: Alert awake oriented x3, moves all 4 extremities spontaneously, cranial nerves intact, able to answer all questions appropriately follows commands appropriately Psych: Cooperative, negative suicidal or homicidal ideations Initial Vital Signs Initial Vital Signs: Vital Signs Temperature 98.1 F 07/04/24 20:04 Pulse Rate 86 07/04/24 20:04 Respiratory Rate 17 07/04/24 20:04 Blood Pressure 138/80 07/04/24 20:04 Pulse Oximetry 100 07/04/24 20:04 Oxygen Delivery Method Room Air 07/04/24 20:04 Course Orders Ordered: ED Orders 07/04/24 20:10 EKG-12 Lead Stat 07/04/24 20:12 XR chest 1V Stat 07/04/24 20:14 EKG-12 Lead Routine 07/04/24 20:25 Complete Blood Count AUTO DIFF Stat Comprehensive Metabolic Panel Stat Lipase Stat Magnesium Stat NT-proBNP (BNP-Adult 18+) Stat PTT Partial Thromboplastin Manan Stat Prothrombin Time INR Stat TSH [Thyroid Stimulating Hormone] Stat Troponin & CK Cardiac Panel Stat 07/04/24 21:24 EKG-12 Lead Stat 07/04/24 21:30 EKG-12 Lead Routine EKG-12 Lead Routine Amiodarone HCl/Dextrose (Nexterone) 360 mg in 200 mls @ 33.333 mls/hr IV NOW ONE; Protocol Stop: 07/05/24 02:43 Last Admin: 07/04/24 21:10 Dose: 33.333 ml/hr, 33.33 mls/hr Documented By: DANIELLE Discontinued Medications Aspirin (Aspirin 81 Mg Chew Tab) 324 mg PO NOW ONE Stop: 07/04/24 20:13 Last Admin: 07/04/24 20:16 Dose: 324 mg Documented By: DEBBIE Magnesium Sulfate (Magnesium Sulfate) 2 gm in 50 mls @ 150 mls/hr IV NOW ONE Stop: 07/04/24 20:41 Last Infusion: 07/04/24 20:46 Dose: Infused Documented By: DANIELLE Co-signed By: TANNER Admin: 07/04/24 20:30 Dose: 150 mls/hr Documented By: DANIELLE Co-signed By: Amiodarone HCl/Dextrose (Nexterone) 150 mg in 100 mls @ 600 mls/hr IV NOW ONE; Protocol Stop: 07/04/24 20:53 Last Infusion: 07/04/24 21:11 Dose: Infused Documented By: Admin: 07/04/24 20:53 Dose: 600 mls/hr Documented By: DANIELLE Vital Signs Vital signs: Vital Signs - 8 hr 07/04/24 20:04 07/04/24 20:30 07/04/24 21:30 Temperature 98.1 F Pulse Rate 86 136 H 61 Respiratory Rate 17 27 H 14 Blood Pressure 138/80 131/92 H 111/64 Pulse Oximetry 100 97 96 Oxygen Delivery Method Room Air Room Air Room Air 07/04/24 22:00 07/04/24 22:30 07/04/24 23:00 Temperature Pulse Rate 52 L 61 75 Respiratory Rate 13 13 17 Blood Pressure 131/67 125/75 150/71 H Pulse Oximetry 95 96 97 Oxygen Delivery Method Room Air Room Air Room Air 07/04/24 23:00 07/04/24 23:12 07/04/24 23:30 Temperature Pulse Rate 57 L 69 Respiratory Rate 15 20 Blood Pressure 132/69 128/69 Pulse Oximetry 97 97 Oxygen Delivery Method Room Air 07/04/24 23:30 07/05/24 00:00 07/05/24 00:00 Temperature Pulse Rate 62 67 Respiratory Rate 19 17 Blood Pressure 105/68 Pulse Oximetry 97 95 Oxygen Delivery Method MDM - Chest Pain Differential Diagnosis Differential diagnosis: Likely other (ACS, pneumonia, electrolyte abnormality, COVID, flu) Lab Data 07/04/24 20:25 07/04/24 20:25 Labs: Lab Results 07/04/24 Range/Units 20:25 WBC 10.4 (4.5-11.0) X10^3/uL RBC 4.43 (4.0-5.2) X10^6/uL Hgb 14.3 (12.0-16.0) g/dL Hct 42.4 (36-46) % MCV 95.7 (80-100) fL MCH 32.4 (26-34) PG MCHC 33.9 (30-36) % RDW 13.7 (11.6-14.8) % Plt Count 295 (150-400) X10^3/uL Neut % (Auto) 52.6 (50-75) % Lymph % (Auto) 36.4 (25-40) % [place] % (Auto) 6.5 (3-14) % Eos % (Auto) 3.8 (2-4) % Baso % (Auto) 0.7 (0-2) % Neut # (Auto) 5500 (6166-3397) /uL Lymph # (Auto) 3800 (1321-7802) /uL [place] # (Auto) 700 (0-900) /uL Eos # (Auto) 400 (0-450) /uL Baso # (Auto) 100 (0-100) /uL PT 11.1 (9.4-12.5) SECONDS INR 1.0 (0.9-1.3) APTT 30 (25.1-36.5) SECONDS Sodium 140 (137-145) mmol/L Potassium 3.8 (3.4-5.1) mmol/L Chloride 107 (98-107) mmol/L Carbon Dioxide 24 (22-32) mmol/L BUN 14 (7-17) mg/dL Creatinine 1.06 H (0.52-1.04) mg/dL Estimated GFR 59 L (>60) mL/min BUN/Creatinine Ratio 13.2 (6-22) Glucose 95 (80-110) mg/dL Calcium 9.4 (8.4-10.2) mg/dL Magnesium 1.8 (1.6-2.3) mg/dL Total Bilirubin 0.2 (0.2-1.3) mg/dL AST 39 H (14-36) IU/L ALT 32 (<35) IU/L Alkaline Phosphatase 44 (38-126) U/L Total Creatine Kinase 64 (30-135) U/L Troponin I < 0.012 (0.01-0.034) ng/mL NT-Pro-B Natriuret Pep 79 (<125) pg/mL Total Protein 7.2 (6.3-8.2) g/dL Albumin 4.3 (3.5-5.0) g/dL Globulin 2.9 (1.7-4.1) g/dL Albumin/Globulin Ratio 1.5 (1.0-2.8) Lipase 127 (23-300) U/L TSH 4.29 (0.47-4.68) uIU/mL Imaging Data Chest x-ray: Radiologist's Impression: [address] [id number] XRay Report Signed Patient: Mary Grace Elaine MR#: [id number] : 1960 Acct:[id number] Age/Sex: 63 / F Date of Service: 07/04/24 Loc: ED Accession Number: [id number] Procedure: XR chest 1V Ordering Provider: Benoit Freed D.O. PROCEDURE: XR CHEST 1V INDICATIONS: chest pain TECHNIQUE: One view of the chest was acquired. COMPARISON: None. FINDINGS: Surgical changes and devices: None. Lungs and pleura: Lungs are clear. No pleural effusions or pneumothorax. Mediastinum: Mediastinal contours appear normal. Heart size is normal. Bones and chest wall: No suspicious bony lesions. Mild dextroscoliotic curvature of the thoracolumbar spine. Overlying soft tissues appear unremarkable. IMPRESSION: No acute cardiopulmonary abnormality is seen. ECG Data Interpretation: EKG interpreted by ED physician nonsustained V-tach at 145bpm QTC [address] changes no STEMI Repeat EKG after bolus of amiodarone, 2 g Mag and now on amiodarone drip Sinus bradycardia at 51 beats per minute QTC [address] changes no STEMI MDM Narrative Medical decision making narrative: 63-year-old female with only past medical history of hyperlipidemia presents for abnormal heart rate, bradycardia states apply walk was showing that she was bradycardic, as well as lightheaded dizziness. Patient was found to be intermittently and nonsustained V-tach, pads placed, 2 g magnesium ordered, 150 mg bolus of amiodarone and amiodarone drip ordered. Lab work was performed no leukocytosis Chem panel unremarkable. Troponin negative, EKG showing intermittent nonsustained V-tach however no ischemic changes. Patient's heart rate has now been controlled with amiodarone drip. She will be transferred to higher level of care where Cardiology we will further evaluate the patient. 2032: Had a discussion with business mail entry clerk Dr. Ramos, who personally reviewed the EKG, is recommending 150 mg amiodarone bolus and amiodarone drip of 1 make per kg, does agree that patient should be transferred to a place with Cardiology, agrees with other current workup of needing magnesium. 2141: Discussed case with Dr. Porter at [facility] (cardiology) who agrees with current workup no additional intervention needed, does agree patient should be transferred, transfer center states will call back with admitting hospitalist [phone]: Call discussed with DR. Martinez at [facility] (accepts the admission), [facility] PCU bed does appear to be available but will call back with actual bed assignment. 07.05.24 @ 0051: Delayed charting due to care of other critical patients, patient was evaluated prior to transfer to tertiary care site, patient hemodynamically stable safe for transfer to tertiary care site for cardiology consultation and further workup. Discharge Plan Departure Patient Disposition: [facility] Clinical Impression: Non-sustained ventricular tachycardia Prescriptions: No Action phenazopyridine [Pyridium] 200 mg tablet 200 mg PO TID 0 Days Qty: 6 0RF Multiple Vitamin, Womens Tablet 2 tab PO DAILY Qty: 0 ibuprofen 200 MG tablet 400 mg PO PRN Qty: 0 atorvastatin 20 mg tablet 20 mg PO ONCE PM Qty: 90 0RF nitrofurantoin monohyd/m-cryst 100 mg capsule 1 cap PO DAILY Qty: 30 12RF estradiol [Vagifem] 10 mcg tablet 10 mcg vaginal 3XW Qty: 12 12RF progesterone micronized 200 mg capsule 200 mg PO ONCE PM cardiotriplex PO B12 Folate PO D3 + K2 PO DIM Detox PO Progesterone PO Referrals: Taz Stevens MD [Primary Care Provider] -
[2024-07-04] MEDS: MAGNESIUM SULFATE 2 GM/50 ML PIGGYBACK IV (20:30)
[2024-07-04 20:36] LABS: Add Manual Diff / Slide Review NO; Basophils Absolute Auto 100 /uL (0-100); Basophils Percent Auto 0.7 % (0-2); Eosinophils Absolute Auto 400 /uL (0-450); Eosinophils Percent Auto 3.8 % (2-4); Hematocrit 42.4 % (36-46); Hemoglobin 14.3 g/dL (12.0-16.0); Lymphocytes Absolute Auto 3800 /uL (1100-4500); Lymphocytes Percent Auto 36.4 % (25-40); Mean Corpuscular HGB Conc 33.9 % (30-36); Mean Corpuscular Hemoglobin 32.4 PG (26-34); Mean Corpuscular Volume 95.7 fL (80-100); Monocytes Absolute Auto 700 /uL (0-900); Monocytes Percent Auto 6.5 % (3-14); Neutrophils Absolute Auto 5500 /uL (1500-7000); Neutrophils Percent Auto 52.6 % (50-75); Platelet Count 295 X10^3/uL (150-400); Red Blood Cell Count 4.43 X10^6/uL (4.0-5.2); Red Cell Distribution Width 13.7 % (11.6-14.8); White Blood Cell Count 10.4 X10^3/uL (4.5-11.0)
--- NOTE | 2024-07-04 20:37 | PC.NURSE ---
pt having runs of Vtach with pauses, then SR noted, pt is aao x 3 resp even and unlabored pads placed on pt and pt attached to the defibrillator, at bedside
--- NOTE | 2024-07-04 20:45 | PC.NURSE ---
pt c/o someone sitting on her chest, states she does not want anything for pain at this time, answering pt's questions regarding situation and plan of care
[2024-07-04 20:46] LABS: Prothrombin Time 11.1 SECONDS (9.4-12.5)
[2024-07-04 20:48] LABS: PTT Partial Thromboplastin Tim 30 SECONDS (25.1-36.5)
[2024-07-04 20:50] LABS: Albumin 4.3 g/dL (3.5-5.0); Albumin Globulin Ratio 1.5 (1.0-2.8); Alkaline Phosphatase 44 U/L (38-126); BUN Creatinine Ratio 13.2 (6-22); Bilirubin Total 0.2 mg/dL (0.2-1.3); Blood Urea Nitrogen 14 mg/dL (7-17); Calcium 9.4 mg/dL (8.4-10.2); Carbon Dioxide 24 mmol/L (22-32); Chloride 107 mmol/L (98-107); Creatine Kinase 64 U/L (30-135); Estimated Glomerular Filt Rate 59 mL/min (>60); Globulin 2.9 g/dL (1.7-4.1); Glucose 95 mg/dL (80-110); HEMOLYSIS < 15 (0-50); Lipase 127 U/L (23-300); Magnesium 1.8 mg/dL (1.6-2.3); Potassium 3.8 mmol/L (3.4-5.1); Sodium 140 mmol/L (137-145); Total Protein 7.2 g/dL (6.3-8.2)
[2024-07-04] MEDS: AMIODARONE 150 MG/100 ML PIGGYBACK 600 MG IV (20:53)
[2024-07-04 20:54] LABS: Alanine Aminotransferase 32 IU/L (<35); Aspartate Aminotransferase 39 IU/L (14-36)
[2024-07-04 21:01] LABS: NT-proBNP (BNP-Adult 18+) 79 pg/mL (<125); Troponin I < 0.012 ng/mL (0.01-0.034)
[2024-07-04] MEDS: AMIODARONE 360 MG/200 ML PIGGYBACK 33.33 MG IV (21:10)
--- NOTE | 2024-07-04 21:30 | EKG_ITS ---
[place] [id number] [place] [id number] Test Date: 2024-07-04 Pat Name: Mary Grace Elaine Department: Room: Gender: Female Generalist: carin : 1960 Requested By: Order Number: [id number] Reading MD: Scar Mantilla Measurements Intervals [place] Rate: 51 P: 76 SD: 106 QRS: -23 QRSD: 92 T: 4 QT: 440 QTc: 405 Interpretive Statements Sinus bradycardia with sinus arrhythmia with short SD Electronically Signed On 07-05-2024 7:23:38 PST by Scar Mantilla
[2024-07-04 21:52] LABS: Thyroid Stimulating Hormone 4.29 uIU/mL (0.47-4.68)
[2024-07-05] VITALS: BP 105/68; PULSE 67; RESP 17; O2SAT 95
--- NOTE | 2024-07-05 00:10 | PC.NURSE ---
discussed with pt regarding her going to [place] and her being able to transfer her care to back seam stitcher to home after her being stabilized if that was what she wanted, pt was worried about it being so far from home, the situation, the flight, etc. listened to pt's concerns, provided explanations and answered questions to reassure pt
--- NOTE | 2024-07-05 00:50 | PC.NURSE ---
infusion continued upon transfer
== END 2024-07-05 00:56 | disposition short-term general hospital (02) ==
PROVIDERS: Emergency Provider Student in an Organized Health Care Education/Training Program; Family Provider Family Medicine; PCP Family Medicine
DX: I47.29 Other ventricular tachycardia (principal); R42 Dizziness and giddiness; R00.1 Bradycardia, unspecified; R00.2 Palpitations
CPT/HCPCS: 36415; 71045; 80053; 82550; 83690; 83735; 83880; 84443; 84484; 85025; 85610; 85730; 93005; 96365; 96366; 96367; 99284; 99285; J0282; J3475

== ENCOUNTER → 2024-07-20 06:57 | Outpatient (CLI) | payer OTHER, SELFPAY ==
[2024-07-20 07:44] LABS: Add Manual Diff / Slide Review NO; Basophils Absolute Auto 100 /uL (0-100); Eosinophils Absolute Auto 400 /uL (0-450); Eosinophils Percent Auto 4.8 % (2-4); Hematocrit 39.7 % (36-46); Hemoglobin 13.6 g/dL (12.0-16.0); Lymphocytes Absolute Auto 2500 /uL (1100-4500); Lymphocytes Percent Auto 29.9 % (25-40); Mean Corpuscular HGB Conc 34.1 % (30-36); Mean Corpuscular Hemoglobin 32.6 PG (26-34); Mean Corpuscular Volume 95.6 fL (80-100); Monocytes Absolute Auto 600 /uL (0-900); Neutrophils Absolute Auto 4800 /uL (1500-7000); Neutrophils Percent Auto 57.3 % (50-75); Platelet Count 346 X10^3/uL (150-400); Red Blood Cell Count 4.15 X10^6/uL (4.0-5.2); Red Cell Distribution Width 13.4 % (11.6-14.8); White Blood Cell Count 8.3 X10^3/uL (4.5-11.0)
[2024-07-20 08:36] LABS: Alanine Aminotransferase 22 IU/L (<35); Albumin 4.1 g/dL (3.5-5.0); Albumin Globulin Ratio 1.7 (1.0-2.8); Alkaline Phosphatase 41 U/L (38-126); Aspartate Aminotransferase 23 IU/L (14-36); Bilirubin Total 0.5 mg/dL (0.2-1.3); Blood Urea Nitrogen 18 mg/dL (7-17); Calcium 9.3 mg/dL (8.4-10.2); Carbon Dioxide 22 mmol/L (22-32); Chloride 105 mmol/L (98-107); Cholesterol 156 mg/dL (140-199); Estimated Glomerular Filt Rate > 60 mL/min (>60); Globulin 2.4 g/dL (1.7-4.1); Glucose 99 mg/dL (80-110); HDL Cholesterol 43 mg/dL (40-60); HEMOLYSIS < 15 (0-50); LDL Cholesterol Calculated 89 mg/dL (<100); Potassium 4.5 mmol/L (3.4-5.1); Sodium 136 mmol/L (137-145); Total Protein 6.5 g/dL (6.3-8.2); Triglycerides 121 mg/dL (35-150)
[2024-07-20 08:37] LABS: Hemoglobin A1C% w Est Avg Glu 4.5 % (4.0-6.0)
[2024-07-20 08:58] LABS: TSH w/ Reflex to FT4 0.25 uIU/mL (0.47-4.68)
[2024-07-20 09:41] LABS: Free T4, Direct Thyroxine 0.98 ng/dL (0.78-2.19)
== END ==
PROVIDERS: Family Provider Family Medicine; PCP Family Medicine; Referring Provider Family Medicine; Visit Provider Family Medicine
DX: E78.2 Mixed hyperlipidemia (principal); R73.01 Impaired fasting glucose; E07.9 Disorder of thyroid, unspecified
CPT/HCPCS: 36415; 80053; 80061; 83036; 84439; 84443; 85025

== ENCOUNTER → 2024-08-17 06:58 | Outpatient (CLI) | payer OTHER, SELFPAY ==
[2024-08-17 07:41] LABS: Add Manual Diff / Slide Review NO; Basophils Absolute Auto 100 /uL (0-100); Eosinophils Absolute Auto 300 /uL (0-450); Eosinophils Percent Auto 4.6 % (2-4); Hematocrit 43.6 % (36-46); Hemoglobin 14.6 g/dL (12.0-16.0); Lymphocytes Absolute Auto 2400 /uL (1100-4500); Lymphocytes Percent Auto 34.2 % (25-40); Mean Corpuscular HGB Conc 33.4 % (30-36); Mean Corpuscular Hemoglobin 31.8 PG (26-34); Mean Corpuscular Volume 95.2 fL (80-100); Monocytes Absolute Auto 500 /uL (0-900); Monocytes Percent Auto 7.1 % (3-14); Neutrophils Absolute Auto 3800 /uL (1500-7000); Neutrophils Percent Auto 53.1 % (50-75); Platelet Count 267 X10^3/uL (150-400); Red Blood Cell Count 4.58 X10^6/uL (4.0-5.2); Red Cell Distribution Width 12.9 % (11.6-14.8); White Blood Cell Count 7.1 X10^3/uL (4.5-11.0)
[2024-08-17 08:01] LABS: BUN Creatinine Ratio 16.7 (6-22); Blood Urea Nitrogen 12 mg/dL (7-17); Calcium 9.4 mg/dL (8.4-10.2); Carbon Dioxide 24 mmol/L (22-32); Chloride 105 mmol/L (98-107); Estimated Glomerular Filt Rate > 60 mL/min (>60); Glucose 96 mg/dL (80-110); HEMOLYSIS < 15 (0-50); Potassium 4.2 mmol/L (3.4-5.1); Sodium 137 mmol/L (137-145)
== END ==
PROVIDERS: Family Provider Family Medicine; PCP Family Medicine; Referring Provider Internal Medicine; Visit Provider Internal Medicine
DX: R00.1 Bradycardia, unspecified (principal)
CPT/HCPCS: 36415; 80048; 85025

== ENCOUNTER → 2024-11-19 07:46 | Outpatient (CLI) | payer OTHER, SELFPAY ==
--- NOTE | 2024-11-19 07:48 | DI.MG.S_ITS ---
MM screening mammo BI: 11/19/2024. BI-RADS: 2 CLINICAL: 64-year old female for bilateral screening mammogram. Tyrer-Cuzick lifetime risk of 4.7%. No personal or first-degree family history of breast cancer. The patient reports testing negative for BRCA gene mutation. PRIOR EXAMS 10/27/2023, 10/21/2022, 10/16/2021, 07/07/2020. MAMMOGRAPHY TECHNIQUE: 2D and 3D (tomosynthesis) digital mammographic views obtained, with additional images as needed for full coverage. Current study was also evaluated with a Computer Aided Detection (CAD) system. DENSITY B. There are scattered areas of fibroglandular density. MAMMOGRAPHY FINDINGS Bilateral: Benign-appearing calcifications noted. There are no suspicious masses, calcifications, or other findings in the breast. No significant change from comparison. IMPRESSION: * No evidence of malignancy with benign findings. RECOMMENDATIONS Bilateral * Annual screening mammography. OVERALL ASSESSMENT CATEGORY BI-RADS-2: Benign. The [employer] recommends annual screening mammography beginning at age 40 for women with average risk of breast cancer. ELECTRONICALLY SIGNED: Maria Luisa Marie M.D. on 12/06/2024 at 03:40:10 PM PT Interpreting Station ID: [id number]
== END ==
LOC: MAMMO 07:47
PROVIDERS: Family Provider Family Medicine; PCP Family Medicine; Referring Provider Family Medicine; Visit Provider Family Medicine
DX: Z12.31 Encounter for screening mammogram for malignant neoplasm of breast (principal)
CPT/HCPCS: 77063; 77067